=== PATIENT | male | born 1980 | race Caucasian/White ===

== ENCOUNTER 2019-04-12 00:48 | Emergency (ER) | payer BC ==
[2019-04-12] MEDS ORDERED: Ketorolac 15 MG/ML SDV IVPUSH ONE (01:03)
[2019-04-12] MEDS ORDERED: Sodium Chloride 0.9% 1,000 ML IV ONE (01:03)
[2019-04-12] MEDS ORDERED: Ondansetron 4 MG/2 ML SDV IVPUSH ONE (01:03)
[2019-04-12 01:34] LABS: BLOOD UREA NITROGEN,BUN 5 mg/dL (7.0-18.0); CHLORIDE,CL 97 mmol/L (98-107); GLUCOSE RANDOM 108 mg/dL (74-106); LIPASE 86 U/L (73-393); SODIUM,NA 133 mmol/L (136-148)
[2019-04-12] MEDS ORDERED: cloNIDine 0.2 MG/Day Transdermal Patch TRDERM SCH (02:15)
--- NOTE | 2019-04-12 02:25 | EDM.PDOC ---
ED HPI GENERAL MEDICAL PROBLEM - General Chief Complaint: Back Pain or Injury Stated Complaint: BACK PAIN Time Seen by Provider: 04/12/19 00:55 Source of Information: Reports: Patient History Limitations: Reports: No Limitations - History of Present Illness INITIAL COMMENTS - FREE TEXT/NARRATIVE: CC back pain HPI: This is a 38-year-old male with chronic back pain on chronic narcotics who recently had the flu and was vomiting and therefore could not keep down his narcotics it took extra dosages and then ran out. He is since gotten better from the flu but in the past few days has been out of his chronic narcotics so he has been vomiting and having agitation he tried to use alcohol to no avail PMHX/PSHX: Chronic back pain Social History: Negative for tobacco, negative for alcohol, negative for street drugs or marijuana Family history: Hypertension ROS: see chart PE: VS afebrile vital signs stable General: Floridly intoxicated agitated patient Head: Atraumatic normocephalic no lumps bumps or bruises Eyes: EOMI PERRLA scera white, conjuntiva pink Ears: TMs intact. No hemotympanum. No signs of infection or mastoid tenderness Nose: No epistaxis. Nares patent. No septal wall hematoma Throat: No pharyngeal erythema, exudate or tonsillar enlargement Neck: Supple. No cervical lymphadenopathy Chest wall: No point tenderness Heart: Regular rate and rhythm without murmur gallop or rub Lungs: Clear to auscultation and percussion without rale, rhonchi or wheeze. Abdomen: Soft nontender nondistended without guarding rigidity or rebound. Bowel sounds present. Neck: No spinal point tenderness full range of motion in all 6 directions Back: No spinal paraspinal or CVA tenderness Extremities: Full range of motion through out. No effusions Skin: Warm, dry and intact. No rashes, erythema or warmth Neurologic: Cranial nerves II through XII intact bilaterally. No focal motor or sensory deficits noted MDM: Differential diagnosis: ED course: Patient presents with agitation and vomiting. CBC comprehensive metabolic profile lipase are negative. His serum alcohol is 129. He is here with a sober . He has been given IV fluids and antiemetics and is tolerating p.o.'s. He has been supplied with a Catapres patch. He is to follow -up with his pain doctor tomorrow. Cannot refill his narcotic prescriptions here. I emphasized to his that someone needs to have a pointed conversation with his pain specialist to try to get him off the narcotics. Final Diagnosis: Narcotic withdrawal Disposition: Home Back Pain Score (Numeric/FACES): 10 - Related Data Allergies Allergy/AdvReac Type Severity Reaction Status Date / Time No Known Allergies Allergy Verified 04/12/19 01:04 Home Meds: Home Meds oxyCODONE ER [OxyCONTIN] 40 mg PO Q12HR 04/12/19 [History] oxyCODONE HCl/Acetaminophen [Oxycodone-Acetaminophen 10-300] 1 each PO 04/12/19 [History] Past Medical History Cardiovascular History: Reports: Hypertension Musculoskeletal History: Reports: Back Pain, Chronic Other Musculoskeletal History: broke back 2005 - Infectious Disease History Infectious Disease History: Reports: Meningitis Social & Family History - Family History Family Medical History: Noncontributory - Tobacco Use Smoking Status *Q: Current Every Day Smoker Years of Tobacco use: 25 Packs/Tins Daily: 0.5 ED ROS GENERAL - Review of Systems Review Of Systems: Comprehensive ROS is negative, except as noted in HPI. ED EXAM,LOWER BACK PAIN/INJURY - Physical Exam Exam: See Below Text/Narrative:: My note Course - Vital Signs Last Recorded V/S: Last Vital Signs Temp 35.1 C L 04/12/19 00:53 Pulse 96 04/12/19 00:53 Resp 18 04/12/19 00:53 BP 134/89 04/12/19 00:53 Pulse Ox 98 04/12/19 00:53 - Orders/Labs/Meds Orders: Active Orders 24 hr Category Date Time Status DRUG SCREEN, URINE [URCHEM] Stat Lab 04/12/19 01:03 Ordered cloNIDine [Catapres TTS-2] Med 04/12/19 02:15 Active 0.2 mg TRDERM Q7D Medication Orders Clonidine HCl (Catapres Tts-2) 0.2 mg TRDERM Q7D JENN Labs: Laboratory Tests 04/12/19 04/12/19 Range/Units 01:05 01:05 WBC 12.99 H (4.0-11.0) K/uL RBC 4.82 (4.50-5.90) M/uL Hgb 14.6 (13.0-17.0) g/dL Hct 41.1 (38.0-50.0) % MCV 85.3 (80.0-98.0) fL MCH 30.3 (27.0-32.0) pg MCHC 35.5 (31.0-37.0) g/dL RDW Std Deviation 37.7 (28.0-62.0) fl RDW Coeff of Judson 12 (11.0-15.0) % Plt Count 335 (150-400) K/uL MPV 8.20 (7.40-12.00) fL Neut % (Auto) 71.7 (48.0-80.0) % Lymph % (Auto) 22.4 (16.0-40.0) % [place] % (Auto) 5.5 (0.0-15.0) % Eos % (Auto) 0.2 (0.0-7.0) % Baso % (Auto) 0.2 (0.0-1.5) % Neut # (Auto) 9.3 H (1.4-5.7) K/uL Lymph # (Auto) 2.9 H (0.6-2.4) K/uL [place] # (Auto) 0.7 (0.0-0.8) K/uL Eos # (Auto) 0.0 (0.0-0.7) K/uL Baso # (Auto) 0.0 (0.0-0.1) K/uL Sodium 133 L (136-148) mmol/L Potassium 3.0 L (3.5-5.1) mmol/L Chloride 97 L (98-107) mmol/L Carbon Dioxide 23.0 (21.0-32.0) mmol/L BUN 5 L (7.0-18.0) mg/dL Creatinine 0.8 (0.8-1.3) mg/dL Est Cr Clr Drug Dosing 118.20 mL/min Estimated GFR (MDRD) > 60.0 ml/min Glucose 108 H (74-106) mg/dL Calcium 8.2 L (8.5-10.1) mg/dL Total Bilirubin 0.3 (0.2-1.0) mg/dL AST 17 (15-37) IU/L ALT 34 (14-63) IU/L Alkaline Phosphatase 58 (46-116) U/L Total Protein 7.1 (6.4-8.2) g/dL Albumin 4.0 (3.4-5.0) g/dL Globulin 3.1 (2.6-4.0) g/dL Albumin/Globulin Ratio 1.3 (0.9-1.6) Lipase 86 (73-393) U/L Ethyl Alcohol 122 mg/dL Meds: Medications Generic Name Dose Route Start Last Admin Trade Name Freq PRN Reason Stop Dose Admin Clonidine HCl 0.2 mg 04/12/19 02:15 Catapres Tts-2 TRDERM Q7D JENN Discontinued Medications Generic Name Dose Route Start Last Admin Trade Name Freq PRN Reason Stop Dose Admin Sodium Chloride 1,000 mls @ 1,000 mls/hr 04/12/19 01:03 04/12/19 01:22 Normal Saline IV 04/12/19 02:02 1,000 mls/hr .Bolus ONE Administration Ketorolac Tromethamine 15 mg 04/12/19 01:03 04/12/19 01:22 Toradol IVPUSH 04/12/19 01:04 15 mg ONETIME ONE Administration Ondansetron HCl 4 mg 04/12/19 01:03 04/12/19 01:22 Zofran IVPUSH 04/12/19 01:04 4 mg ONETIME ONE Administration Departure - Departure Time of Disposition: 02:28 Disposition: Home, Self-Care 01 Clinical Impression: Narcotic withdrawal - Discharge Information Instructions: Chemical Dependency, Opioid Use Disorder Referrals: Kam iVctor MD [Primary Care Provider] - Additional Instructions: The following information is given to patients seen in the emergency department who are being discharged to home. This information is to outline your options for follow-up care. We provide all patients seen in our emergency department with a follow-up referral. The need for follow-up, as well as the timing and circumstances, are variable depending upon the specifics of your emergency department visit. If you don't have a primary care physician on staff, we will provide you with a referral. We always advise you to contact your personal physician following an emergency department visit to inform them of the circumstance of the visit and for follow-up with them and/or the need for any referrals to a consulting specialist. The emergency department will also refer you to a specialist when appropriate. This referral assures that you have the opportunity for follow-up care with a specialist. All of these measure are taken in an effort to provide you with optimal care, which includes your follow-up. Under all circumstances we always encourage you to contact your private physician who remains a resource for coordinating your care. When calling for follow-up care, please make the office aware that this follow-up is from your recent emergency room visit. If for any reason you are refused follow-up, please contact the [facility] Emergency Department at and asked to speak to the emergency department charge nurse. Follow up with your pain specialist in the morning Sepsis Event Note - Evaluation Sepsis Screening Result: No Definite Risk - Focused Exam Vital Signs: Vital Signs Temp Pulse Resp BP Pulse Ox 04/12/19 00:53 35.1 C L 96 18 134/89 98 Date Exam was Performed: 04/12/19 Time Exam was Performed: 02:16 - My Orders Last 24 Hours: My Active Orders 04/12/19 01:03 DRUG SCREEN, URINE [URCHEM] Stat 04/12/19 02:15 cloNIDine [Catapres TTS-2] 0.2 mg TRDERM Q7D - Assessment/Plan Last 24 Hours: My Active Orders 04/12/19 01:03 DRUG SCREEN, URINE [URCHEM] Stat 04/12/19 02:15 cloNIDine [Catapres TTS-2] 0.2 mg TRDERM Q7D
[2019-04-12] MEDS ORDERED: cloNIDine 0.1 MG/Day Transdermal Patch TRDERM SCH (02:30)
== END 2019-04-12 02:48 | disposition home or self-care (01) ==
LOC: MW.ED 00:48
DX: F11.23 Opioid dependence with withdrawal (principal); F17.210 Nicotine dependence, cigarettes, uncomplicated
CPT/HCPCS: 36415; 80053; 80307; 83690; 85025; 96361; 96374; 96375; 99284; A9270; J1885; J2405; J7030; 99283